=== PATIENT | male | born 1965 | race Caucasian/White ===

== ENCOUNTER 2019-06-18 08:41 | Emergency (ER) | payer BC, OTHER ==
[2019-06-18] MEDS ORDERED: Ketorolac Tromethamine 60 MG/2 ML VIAL ONE (09:24)
--- NOTE | 2019-06-18 10:04 | RAD ---
LUMBAR SPINE SERIES 3 VIEWS: Date: 06/18/2019 HISTORY: Fall with low back pain. FINDINGS: The vertebral bodies maintain normal height. Degenerative osteophytes are seen with some minimal disc narrowing at L3-4. Mild disc narrowing at L4-5 and L5-S1. Pedicles are intact. Vascular calcificatio ns are noted. IMPRESSION: Arthritic changes of the spine. No acute injury. POS: [facility]
== END 2019-06-18 10:22 | disposition home or self-care (01) ==
LOC: MADERS 08:41
DX: S20.221A Contusion of right back wall of thorax, initial encounter (principal); S30.0XXA Contusion of lower back and pelvis, initial encounter; I10 Essential (primary) hypertension; F17.210 Nicotine dependence, cigarettes, uncomplicated; Z71.6 Tobacco abuse counseling; Z79.899 Other long term (current) drug therapy; W01.198A Fall on same level from slipping, tripping and stumbling with subsequent striking against other object, initial encounter; Y99.0 Civilian activity done for income or pay
CPT/HCPCS: 72100; 96372; 99406; J1885

== ENCOUNTER 2019-07-11 10:52 | Emergency (ER) | payer BC, OTHER ==
[2019-07-11 12:00] LABS: Bilirubin Negative (Negative); Blood, Urine Trace (Negative); Clarity Clear (Clear); Glucose, Urine (Dipstick) Negative (Negative); Leukocyte Negative (Negative); Nitrite Positive (Negative); Protein, Urine (Dipstick) Negative (Neg-Trace); Urobilinogen 0.2 mg/dL (Less than 2)
[2019-07-11 12:05] LABS: Bacteria/HPF Rare-Few HPF (None Seen); RBC/HPF 0-3 HPF (0-3); Squamous Epithelial 0-3 HPF (0-3); WBC/HPF None Seen HPF (0-3)
--- NOTE | 2019-07-11 12:40 | CT ---
CT abdomen and pelvis noncontrast CT lumbar spine noncontrast HISTORY: Abdomen pain. Fall. Back pain. FINDINGS: The lung bases are clear. Each renal collecting system, ureter, and urinary bladder are dec ompressed without stone evident. There is prominent calcification throughout the arterial structures. Lack of contrast limits evaluation of the soft tissues. No evidence of bowel obstruction. No free air or free fluid. Vertebral body heights and alignment of the lumbar spine are maintained. Moderate osteophytosis throu ghout the vertebral bodies and facets. Mildly distracted fracture involves the right L2 transverse process. IMPRESSION: Right L2 transverse process fracture. No unstable injury is apparent. No CT evidence of urinary tract obstruction or calcification. Prominent atherosclerosis.
== END 2019-07-11 13:05 | disposition home or self-care (01) ==
LOC: MADERS 10:52
DX: S32.029A Unspecified fracture of second lumbar vertebra, initial encounter for closed fracture (principal); M62.830 Muscle spasm of back; I10 Essential (primary) hypertension; F17.210 Nicotine dependence, cigarettes, uncomplicated; Z79.899 Other long term (current) drug therapy; W18.30XA Fall on same level, unspecified, initial encounter
CPT/HCPCS: 36415; 74176; 81003; 81015

== ENCOUNTER 2023-03-07 16:56 | Emergency (ER) | payer OTHER ==
[2023-03-07] MEDS ORDERED: methylPREDNISolone Sod Succ/PF 125 MG/2 ML VIAL ONE (17:58)
[2023-03-07] MEDS ORDERED: Ipratropium/Albuterol 3 ML NEB ONE (17:58)
[2023-03-07 18:05] LABS: SARS-CoV-2 NAA Rapid Test Not Detected (NotDetected)
[2023-03-07 18:08] LABS: #Basophils 0.2 thou/uL (0.0-0.2); #Eosinphils 0.2 thou/uL (0.0-0.7); #Lymphocytes 1.9 thou/uL (1.20-3.40); #Monocytes 1.1 thou/uL (0.11-0.59); #Neutrophils 9.2 thou/uL (1.40-6.50); %Basophils 1.9 % (0.0-1.0); %Eosinophils 1.3 % (0.0-10.0); %Lymphocytes 14.9 % (21.0-51.0); %Monocytes 9.1 % (0.0-10.0); %Neutrophils 72.8 % (42.0-75.0); Hematocrit 51.9 % (42.0-52.0); Hemoglobin 16.4 g/dL (14.0-18.0); Mean Corpuscular HGB CONC 31.6 g/dL (32.0-36.0); Mean Corpuscular Hemoglobin 30.8 pg (27.0-31.0); Mean Corpuscular Volume 97.3 fl (78.0-98.0); Platelet Count 197 10x3/uL (130-400); RBC Distribution Width 12.2 % (11.5-14.5); Red Blood Cell (RBC) Count 5.33 mill/uL (4.70-6.10); White Blood Cell (WBC) Count 12.6 10x3/uL (4.8-10.8)
[2023-03-07 18:15] LABS: INR-International Normal Ratio 1.1; Prothrombin Time 14.9 sec (12.0-14.7)
[2023-03-07 18:16] LABS: PTT 29.3 sec (22.9-36.1)
[2023-03-07 18:21] LABS: ALT (SGPT) 40 U/L (8-55); AST (SGOT) 39 U/L (5-34); Albumin 4.2 g/dL (3.5-5.0); Alkaline Phosphatase 61 U/L (40-110); Anion Gap 16 mmol/L (10-20); BUN (Urea Nitrogen) 8 mg/dL (8.4-25.7); Bilirubin, Total 0.9 mg/dL (0.2-1.2); Calc. Creatinine Clearance 0 mL/min (70-130); Calcium 9.1 mg/dL (7.8-10.44); Carbon Dioxide 24 mmol/L (22-29); Chloride 104 mmol/L (98-107); Estimated GFR 97; Globulin 3.1 g/dL (2.4-3.5); Glucose 105 mg/dL (70-105); Protein, Total 7.3 g/dL (6.0-8.3); Sodium 140 mmol/L (136-145)
[2023-03-07] MEDS ORDERED: Albuterol 200 PUFF (6.7GM INHALER) ONE (18:27)
== END 2023-03-07 19:12 | disposition home or self-care (01) ==
LOC: MADERS 16:56
DX: R06.2 Wheezing (principal); I10 Essential (primary) hypertension; M19.90 Unspecified osteoarthritis, unspecified site; F17.290 Nicotine dependence, other tobacco product, uncomplicated; I42.9 Cardiomyopathy, unspecified; Z20.822 Contact with and (suspected) exposure to COVID-19; Z79.899 Other long term (current) drug therapy
CPT/HCPCS: 71046; 80053; 83605; 83880; 85025; 85610; 85730; 87040; 87804; 93005; 94760; 96374; J2930; J7620; U0002